=== PATIENT | female | born 1970 | race Caucasian/White ===

== ENCOUNTER 2016-08-18 09:16 | Observation (INO) ==
[2016-08-18] MEDS ORDERED: LR 1,000 ML IV ONE (09:26)
[2016-08-18] MEDS ORDERED: LR 1,000 ML ONE (09:28)
[2016-08-18 09:37] LABS: MANUAL DIFF NEEDED? NO
[2016-08-18 09:39] LABS: BASO% 0.3 % (0.0-0.8); EOS# 0.04 X1000 (0.0-0.7); EOS% 0.4 % (0.0-10.0); HEMATOCRIT 45.3 % (37.0-47.0); HEMOGLOBIN 16.2 g/dL (12.0-16.0); IMM GRAN# 0.02 X1000 (0.0-0.04); IMM GRAN% 0.2 % (0.0-0.5); LYMPH# 0.94 X1000 (1.2-3.4); LYMPH% 9.4 % (20.5-51.1); MCH 31.1 PG (27-31); MCHC 35.8 g/dL (33-37); MCV 86.9 FL (81-99); MONO# 1.03 X1000 (0.11-0.59); MONO% 10.2 % (1.7-9.3); MPV 10.5 FL (7.4-10.4); NEUT% 79.5 % (42.2-75.2); PLT 196 X1000 (130-400); RBC 5.21 XMIL (4.2-5.4)
[2016-08-18] MEDS: NORCO-7.5 PO PRN (09:58)
[2016-08-18] MEDS ORDERED: PHENERGAN IV SCH (10:00)
[2016-08-18] MEDS ORDERED: SODIUM CHLORIDE 0.9% INJ SCH (10:00)
[2016-08-18 10:16] LABS: ALBUMIN 4.5 g/dL (3.5-5.0); CALCIUM 9.5 mg/dL (8.8-10.2); POTASSIUM 3.9 mmol/L (3.5-5.1); TOTAL BILIRUBIN 0.78 mg/dL (0.20-1.00); TOTAL PROTEIN 7.6 g/dL (6.3-8.3)
[2016-08-18] MEDS: MORPHINE ONE ×2 (10:28→12:54)
[2016-08-18] MEDS: D5 1/2 NS + KCL 20 MEQ 1,000 ML IV SCH ×2 (10:30→20:01)
[2016-08-18] MEDS ORDERED: PHENERGAN IV PRN (10:31)
[2016-08-18] MEDS ORDERED: MORPHINE IV ONE (10:32)
[2016-08-18 10:33] LABS: ALBUMIN 4.5 g/dL (3.5-5.0); DIRECT BILIRUBIN 0.3 mg/dL (0.00-0.20); TOTAL BILIRUBIN 0.8 mg/dL (0.20-1.00); TOTAL PROTEIN 7.3 g/dL (6.3-8.3)
[2016-08-18] MEDS ORDERED: SODIUM CHLORIDE 0.9% INJ PRN (10:36)
--- NOTE | 2016-08-18 12:16 | Diag Imaging Result Doc PS360 ---
EXAM: ABDOMEN/PELVIS W/CONTRAST HISTORY: abdominal pain TECHNIQUE: CT of the abdomen with intravenous and oral contrast with dose reduction (clarity.) COMMENT: There is no evidence of acute disease in the visualized portion of the chest. The current study is compared with the previous noncontrast study of 08/12/2016. There has been cholecystectomy and there are are some edema just changes in the gallbladder fossa consistent with recent cholecystectomy. There is some periportal edema and slight intrahepatic biliary dilatation. The common bile duct is slightly distended at over 7 mm. There are no identifiable duct stones. The pancreatic duct is is not particularly distended. The pancreas is normal in appearance. The spleen and adrenal glands are not enlarged. The kidneys are without evidence of hydronephrosis or mass. There is no evidence of significant adenopathy or bowel obstruction. There is oral contrast in the ascending colon. There is gas in the subcutaneous tissues over the right upper quadrant anteriorly as well as deep to the rectus abdominis muscle and abdominal wall extending to the pelvis. This is presumably is secondary to the recent cholecystectomy. CT of the pelvis with intravenous and oral contrast: There is no evidence of appendicitis. The urinary bladder is slightly distended. There is a small amount of free fluid in the cul-de-sac which is of water density measuring less than 3 Hounsfield units. There are no masses and there is no evidence of significant adenopathy. There is a lucent area measuring 10 mm in diameter near the right cornu of the endometrial cavity. This was also present at the time of the previous study although is more conspicuous on this postcontrast exam. There are no acute bony abnormalities. IMPRESSION: Biliary dilatation of uncertain etiology. This may be secondary to the recent operative procedure. Other postsurgical changes as described above. Minimal free pelvic fluid. Hypodense abnormality in the uterus which is doubtless not related to the current illness but further evaluation with ultrasonography may be desirable as an outpatient. Electronically signed by Michael Arriola 08/18/2016 12:14 PM
[2016-08-18] MEDS ORDERED: MORPHINE IV PRN (12:48)
[2016-08-18] MEDS ORDERED: DEMEROL IM ONE (14:15)
[2016-08-18] MEDS ORDERED: PHENERGAN IM ONE (14:15)
[2016-08-18] MEDS ORDERED: NARCAN IV PRN (14:15)
[2016-08-18] MEDS ORDERED: MORPHINE PCA IV PRN (14:15)
[2016-08-18] MEDS ORDERED: LR 1,000 ML IV SCH (14:15)
[2016-08-18] MEDS ORDERED: MILK OF MAGNESIA PO ONE (15:06)
[2016-08-18] MEDS ORDERED: GLYCERIN ADULT PR ONE (15:07)
--- NOTE | 2016-08-18 15:21 | HISTORY AND PHYSICAL ---
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 At the time of surgery, her gallbladder was chronically inflamed but there was no acute infection. She did have stones in her gallbladder. We did do an intraoperative cholangiogram, which was normal and we felt the operation went safely. She was discharged home several hours after surgery in the evening on the day of surgery. This morning I heard from her through our drum operator that she was disoriented and fell trying to get out of bed, was very weak, had abdominal pain and had not been able to keep anything down because of persistent nausea and vomiting. I asked that she return to the emergency department. PAST MEDICAL HISTORY: As above. MEDICATIONS: None. ALLERGIES: None. 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 She lives locally. She has 1 child. She is . She does not smoke. REVIEW OF SYSTEMS: A 14-point review of systems was performed and except for this intractable nausea and vomiting and abdominal pain which she attributes to gas, it is essentially negative. PHYSICAL EXAMINATION: GENERAL: Ms. Larsen looks acutely ill, very weak, in a wheelchair, hard to hold her head up. She is very slim. She was cooperative. She had no evidence of jaundice. HEENT: No oral lesions. No cervical or supraclavicular lymphadenopathy. HEART: Had a regular rate. LUNGS: Clear to auscultation and percussion bilaterally. ABDOMEN: Remained flat. There was no evidence of acute abdomen. Her trocar sites were healing well. She had no costovertebral tenderness. RECTAL/VAGINAL: Exams were not performed. EXTREMITIES: I could palpate her femoral pulses. She had no peripheral edema. NEUROLOGICAL: No focal deficits. IMPRESSION: Intractable nausea and vomiting with dehydration and now disorientation 3 days status post laparoscopic cholecystectomy which we felt went well. She had a normal cholangiogram at the time of surgery. PLAN: We edgar blood. We will bolus her IV fluids and reassess today throughout her hospitalization. cc: Mayra Carey MD
[2016-08-18] MEDS: PROTONIX IV SCH (16:35)
[2016-08-18] MEDS: SODIUM CHLORIDE 0.9% INJ SCH (16:35)
--- NOTE | 2016-08-18 16:35 | PROGRESS NOTE ---
DATE: 08/18/2016 Ms. Larsen is now postop day 3 after undergoing a laparoscopic cholecystectomy for right upper quadrant abdominal pain. At the time of surgery I did do a cholangiogram which we felt was normal. There was flow of the dye into the duodenum. Prior to surgery she had a 3-day history of upper abdominal pain, prompting her to present to the emergency department. A CT scan was unremarkable but a followup ultrasound because of her persistent upper abdominal pain did document a gallstone and it was felt that this gallstone was symptomatic and I proceeded by taking her gallbladder out. Despite her cholecystectomy she states that this pain in the right upper quadrant has not improved. This morning she called me and was a little bit disoriented. She had not been able to eat and she was having abdominal pain. She was admitted directly and I have resuscitated her with IV fluids and gotten laboratory data. Her liver function tests are essentially normal. There was no elevation of her total bilirubin and there is no significant elevation of her AST and ALT. Her white blood cell count is 10, and her hematocrit was 46%. Electrolytes were essentially within normal limits. I got a CT scan of her abdomen and pelvis and there was a question of some dilatation of the intra and extrahepatic bile ducts, but again her liver function tests are within normal limits and this slight dilatation extended down into the ampulla. I felt the surgery had gone well and therefore after the CT scan I did not think there was an injury of any extrahepatic bile duct. There was not much free fluid so I think there would have been more fluid around the liver if she had a significant bile leak. She has no evidence of bowel obstruction because oral contrast got to her ascending colon. However she continues to have severe right upper quadrant pain requiring IV morphine. PLAN: I will start her on IV Protonix. I am going to ask Gastroenterology to see her in hopes that they may help with her symptoms. I feel that whatever was going on prior to her cholecystectomy despite removing her gallbladder has persisted, and maybe the gallstone was not the etiology of this pain. I am more comfortable that she does not have an injury from her laparoscopic cholecystectomy. We will continue IV hydration. I will repeat laboratories studies in the morning, and I am going to place her on a pain pump per Anesthesia. cc: Mayra Carey MD
[2016-08-18] MEDS ORDERED: MOTRIN PO SCH (17:00)
--- NOTE | 2016-08-18 17:48 | CONSULTATION ---
DATE OF CONSULTATION: 08/18/2016 REQUESTING PHYSICIAN: Dr. Carey. REASON FOR CONSULT: Abdominal pain. HISTORY: This is a 46-year-old white female with no history of major medical problem. Recently recently underwent laparoscopic cholecystectomy which was free of any event. However she was readmitted today with complaints of abdominal pain. On further questioning, she tells me that the pain has been persistent ever since it started about a week ago. It is constant pain which is located in the right side of the chest under her rib cage. The pain is worse when she stands up and when she takes a deep breath but the pain is not related to coughing or sneezing. It is not associated with any shortness of breath. Initially pain was associated with some nausea but no vomiting. She did not have any fever or chills with the pain. She had not had any dysuria, polyuria or hematuria. She had a urine exam which did show that she had suspicion of urinary tract infection. She was started on Bactrim which was stopped after the urine culture did not grow any bacteria suggestive of UTI. She did have gallbladder surgery and intraoperative cholangiogram did not show any pathology but the pathology report is pending for her gallbladder. The pain has been persistent despite taking pain medication so she was brought to the hospital admitted for further management, treatment. She denies any melena or bright red blood per rectum. She does not carry history of peptic ulcer disease. PAST MEDICAL HISTORY: Nothing significant. SURGERIES: Recent cholecystectomy. MEDICATIONS: She is currently on Lexapro and has taken some ibuprofen but she does not take any [id number] medication. ALLERGIES: No drug allergies. SOCIAL HISTORY: She drinks wine almost every night. Does not smoke. Does not drink, no illicit drugs. FAMILY HISTORY: Noncontributory. REVIEW OF SYSTEMS: As per HPI above. PHYSICAL EXAM: General: Very pleasant white female. She is in and out of somnolence. She has received some pain medication. She does respond to questions appropriately. Vital Signs: Temperature 98.6 degrees, pulse 79 per minute, breathing 18, blood pressure was 145/64. She weighs about 120 pounds. She is 5 feet 7 inches tall. HEENT: Head is atraumatic, normocephalic. Conjunctivae is normal. Sclerae anicteric. Nares are patent. No discharge noted. Mouth mucosa moist. Throat is normal. Neck: Supple. No lymphadenopathy, thyromegaly. Chest: Bilaterally symmetrical. It is moving with respirations. Breath sounds audible bilaterally. No rhonchi or crepitations could be heard. Heart: S1, S2 audible. No murmur could be appreciated. Abdomen: Is postsurgical. Some Steri-Strips and dressings are noted in the anterior abdominal wall. The anterior abdominal wall there was crepitus noted down to the right upper quadrant area and the area was slightly tender on palpation but no rebound tenderness or guarding noted. Bowel sounds are audible. Extremities: No pedal edema, cyanosis, clubbing was noted. [employer]READING [employer]: Grossly intact. No sensory or motor deficit. LABS: Reviewed which showed a WBC of 10.05, hemoglobin 16.2, hematocrit 45.3, MCV 86.9, platelets was 196,000. Sodium 132, potassium 3.9, chloride is 89, bicarb 29, BUN is 20, creatinine 1.1, AST 37, AST 43, total bilirubin was normal. CT scan of the abdomen reviewed. IMPRESSION: Abdominal pain, etiology at this point not known. There is a possibility of musculoskeletal pain. She has done some extraordinary exercises about a week or 10 days ago. However, other etiology needs to be ruled out. I will check her urine for urobilinogen levels to rule out acut intermittent porphyria and treat her with some laxatives to help her constipation. In the meantime I would treat her for musculoskeletal pain with ibuprofen and Robaxin and recheck her labs in the morning. I will check amylase, lipase from the blood drawn this afternoon. I have explained findings and plan the patient and her family member. They were present at bedside. They understood. All the pertinent questions answered. Case was also discussed with Dr. Carey. cc: MD Mayra Vera MD [facility]
--- NOTE | 2016-08-18 19:08 | PROGRESS NOTE ---
DATE: 08/18/2016 Priyanka is complaining of a headache this evening. She also had some vomiting that may be related to the ibuprofen that she got so I stopped her ibuprofen and started her on Toradol 15 mg IV because she weighs only 120 pounds. I discussed her treatment with her. We will check blood counts again in the morning. Her amylase and lipase were normal. I reviewed her EKG that Dr. Perez got. We will have Tristan Erazo, our cardiologists review that. She has no family history of cardiac disease. Dr. Helton thinks that this might be musculoskeletal but we need to be sure there is no intraabdominal component to her pain. I discussed her care with her father and daughter at the bedside also. cc: Mayra Carey MD
[2016-08-18] MEDS: TORADOL IV SCH (20:02)
[2016-08-18] MEDS: ROBAXIN PO SCH (20:02)
[2016-08-19] MEDS: TORADOL IV SCH ×4 (02:49→22:00)
[2016-08-19] MEDS ORDERED: D5 ONE (06:00)
[2016-08-19] MEDS ORDERED: 1/2 NS ONE (06:00)
[2016-08-19] MEDS: D5 1/2 NS + KCL 20 MEQ 1,000 ML IV SCH ×3 (06:06→19:16)
[2016-08-19 06:55] LABS: MANUAL DIFF NEEDED? NO
[2016-08-19 07:00] LABS: BASO% 0.1 % (0.0-0.8); EOS# 0.05 X1000 (0.0-0.7); EOS% 0.6 % (0.0-10.0); HEMOGLOBIN 14.6 g/dL (12.0-16.0); IMM GRAN# 0.02 X1000 (0.0-0.04); IMM GRAN% 0.2 % (0.0-0.5); LYMPH# 0.83 X1000 (1.2-3.4); LYMPH% 10.3 % (20.5-51.1); MCH 31.3 PG (27-31); MCHC 35.6 g/dL (33-37); MONO# 0.85 X1000 (0.11-0.59); MONO% 10.5 % (1.7-9.3); MPV 10.4 FL (7.4-10.4); NEUT% 78.3 % (42.2-75.2); PLT 167 X1000 (130-400); RBC 4.66 XMIL (4.2-5.4)
[2016-08-19 07:56] LABS: AGAP 13; ALBUMIN 3.9 g/dL (3.5-5.0); ALKALINE PHOSPHATASE 65 U/L (32-104); BUN 12 mg/dL (8-22); CALCIUM 8.4 mg/dL (8.8-10.2); CHLORIDE 89 mmol/L (98-107); COSMO 263; GOT 46 U/L (10-30); GPT 50 U/L (10-36); POTASSIUM 3.3 mmol/L (3.5-5.1); SODIUM 131 mmol/L (136-145); TCO2 29 mmol/L (25-35); TOTAL BILIRUBIN 0.75 mg/dL (0.20-1.00); TOTAL PROTEIN 6.4 g/dL (6.3-8.3)
[2016-08-19] MEDS ORDERED: IMITREX PO ONE ×2 (09:47→12:09)
[2016-08-19] MEDS: ROBAXIN PO SCH ×2 (10:19→22:01)
--- NOTE | 2016-08-19 11:00 | PROGRESS NOTE ---
DATE: 08/19/2016 SUBJECTIVE: Lisandra Larsen is now hospital day 2. She underwent a laparoscopic cholecystectomy on 08/15/2016 in the early evening because of right upper quadrant abdominal pain and gallstones. This operation was performed by myself. We did do an intraoperative cholangiogram which I felt was normal at the time of surgery. We felt we did the operation safely. She was having significant right upper quadrant pain for about 3 days prior to surgery, causing her to present to the emergency department where she underwent a CT scan which was essentially normal. An ultrasound is what showed the gallstones. In the postop period, on postop day 3, she called me through the concrete pump operator, stated that she was disoriented, weak, and having abdominal pain. I direct admitted her to the hospital for IV hydration and further evaluation. A repeat CT scan did not suggest any free fluid or any other problems with her surgery. Her liver function tests were essentially normal on admission but she was having significant right upper quadrant pain. This was not diffuse abdominal pain but in the right upper quadrant. I have asked Dr. Helton to see her and Dr. Perez also evaluated her which included an EKG which showed some flipped T-waves but nothing acute. Dr. Helton thought it might be musculoskeletal. She has been on clear liquids. She has required a morphine pain pump which she is taking 14 mg of since yesterday afternoon. She has taken some liquids but minimal p.o. intake. She is now complaining of a migraine headache which she has at home and she treats that with Imitrex which we will give her today. We will change her morphine to Demerol. Again, her labs are within normal limits today. OBJECTIVE: Her heart rate is 86-95, blood pressure 164/95, O2 saturation is 100%. She is afebrile on no IV antibiotics. Her white blood cell count is 8, hematocrit is 41%. Liver function tests, her AST went from 37-46. Her ALT went from 43-50. Her total bilirubin is normal. Her direct bilirubin is also normal. Yesterday, her amylase and lipase were normal. She states that her abdominal pain is some better today but she has taken some pain medicine. She is on IV Toradol also. Her main issue seems to be her migraine headache at this time. Her abdomen is slightly distended. She has had no bowel movements during her hospitalization. She has had a little bit of flatus. PLAN: To treat her migraine headache. Cut down her IV fluids. Advance her diet. Obtain a flat and upright abdominal film. Repeat liver function tests and a CBC tomorrow morning. I discussed her care with her father and daughter at the bedside. cc: Mayra Carey MD
--- NOTE | 2016-08-19 13:39 | Diag Imaging Result Doc PS360 ---
EXAM: FLAT/UPRIGHT ABD/1 VIEW CHEST HISTORY: ileus s/p lap skip TECHNIQUE: Flat and upright abdomen with chest COMMENT: There is some retained contrast in the right colon mixed with stool. There is gas throughout the colon. The stomach and small bowel are not distended. There are phleboliths in the pelvis. There are surgical clips in the gallbladder fossa. CHEST: There is been no significant change in the appearance the chest considering differences in inspiration since 04/30/2013. IMPRESSION: Constipation. Electronically signed by Michael Arriola 08/19/2016 1:37 PM
[2016-08-19] MEDS ORDERED: MILK OF MAGNESIA PO ONE (14:14)
[2016-08-19] MEDS: PROTONIX IV SCH (14:28)
[2016-08-19] MEDS: SODIUM CHLORIDE 0.9% INJ SCH (14:28)
--- NOTE | 2016-08-19 18:33 | PROGRESS NOTE ---
DATE: 08/19/2016 SUBJECTIVE: Patient is resting comfortably. In fact, she had her eyes closed and appears somnolent, easily arousable though. She responds to the question that she is doing better. She tells me that she has not had any abdominal pain per se but she feels as if her bladder is full and needs to urinate. She has not had any bowel movement since she received her milk of magnesia today but she had vomited most of it after she had taken it. She did have some flatus though. She denies any vomiting since last night. She is tolerating diet. She is not having any abdominal cramps. She had migraine headache this morning which has responded well to Imitrex. OBJECTIVE: Vital Signs: Temperature 98.6 degrees, pulse was 80 per minute, breathing 19, blood pressure 165/98. HEENT: Head is atraumatic, normocephalic. Conjunctivae is normal. Sclerae anicteric. Nares are patent. No discharge. Mouth: Buccal mucosa is moist. Abdomen: Is flat, postsurgical. There are some dressings on the anterior abdominal wall. Abdomen is soft, slightly tender. There is still subcutaneous crepitus on the right side. Bowel sounds are audible. LABS: WBC today was 8.06, hemoglobin 14.6, hematocrit 41.0, MCV is 88, platelets were 167,000. Sodium 131, potassium 3.3, chloride 89, bicarb is 29, BUN is 12, creatinine 0.8, glucose was 108, AST 46, ALT 50, total bilirubin 0.75, amylase, lipase done last night was normal. Urobilinogen level is still pending. IMPRESSION: Abdominal pain, improving, almost resolved. She does not have any nausea, vomiting or abdominal pain now however had some headache which has resolved after Imitrex. She does not want any further pain medicine. She has not required any pain medicine for her belly pain. She is currently on Toradol and Robaxin for the musculoskeletal pain most likely responsible for her right upper quadrant pain. I have advised her to stop IV fluid, encouraged her to ambulate and sit up in the bedside chair. Also advised her not to take any pain medicine if she does not need it and continue muscle relaxant, NSAID. Will follow. I will give her another dose of milk of magnesia today. Her blood pressure slightly elevated, stopping IV fluid will help that, sodium is low, potassium is low. She may need some replenishment. cc: MD Mayra Vera MD
[2016-08-19] MEDS: ZOFRAN IV PRN (20:02)
[2016-08-19] MEDS: TYLENOL PO PRN (22:07)
[2016-08-19] MEDS: DEMEROL IV PRN (23:37)
[2016-08-20] MEDS: TORADOL IV SCH ×4 (02:50→20:37)
[2016-08-20] MEDS: D5 1/2 NS + KCL 20 MEQ 1,000 ML IV SCH ×3 (03:09→12:50)
[2016-08-20] MEDS: ZOFRAN IV PRN (03:44)
[2016-08-20] MEDS: TYLENOL PO PRN (03:49)
[2016-08-20] MEDS: DEMEROL IV PRN (05:04)
--- NOTE | 2016-08-20 05:50 | EKG Report ---
Test Performed on : 08/18/2016 3:58:33 PM Test Reason : MD ORDERED Blood Pressure : / mmHG Vent. Rate : 090 BPM Atrial Rate : 090 BPM P-R Int : 104 ms QRS Dur : 078 ms QT Int : 342 ms P-R-T Axes : 021 055 -02 degrees QTc Int : 418 ms Sinus rhythm. with short MN Nonspecific T wave abnormality Abnormal ECG No previous ECGs available Confirmed by Tatyana LANDRUM, Rojas Serrano ([id number]) on 08/20/2016 10:55:25 AM
[2016-08-20 07:00] LABS: MANUAL DIFF NEEDED? NO
[2016-08-20 07:10] LABS: BASO% 0.1 % (0.0-0.8); EOS# 0.01 X1000 (0.0-0.7); EOS% 0.1 % (0.0-10.0); HEMATOCRIT 39.2 % (37.0-47.0); HEMOGLOBIN 14.3 g/dL (12.0-16.0); LYMPH# 0.51 X1000 (1.2-3.4); LYMPH% 6.1 % (20.5-51.1); MCH 31.4 PG (27-31); MCHC 36.5 g/dL (33-37); MONO# 0.83 X1000 (0.11-0.59); MONO% 9.9 % (1.7-9.3); MPV 10.1 FL (7.4-10.4); NEUT% 83.8 % (42.2-75.2); PLT 159 X1000 (130-400); RBC 4.56 XMIL (4.2-5.4)
[2016-08-20 07:16] LABS: ALBUMIN 3.8 g/dL (3.5-5.0); DIRECT BILIRUBIN 0.2 mg/dL (0.00-0.20); TOTAL BILIRUBIN 0.73 mg/dL (0.20-1.00); TOTAL PROTEIN 6.5 g/dL (6.3-8.3)
--- NOTE | 2016-08-20 08:31 | PROGRESS NOTE ---
DATE: 08/20/2016 SUBJECTIVE: Priyanka Larsen is now postop day 5 from a laparoscopic cholecystectomy with intraoperative cholangiogram. She was readmitted to the hospital on postop day 3, because of abdominal pain, nausea, and disorientation. We got a CT scan on her admission which we felt was essentially normal postop lap gallbladder. Her liver function tests were essentially normal. Her white blood cell count was normal and therefore, we have treated her conservatively with IV fluids and clear liquids. Her liver function tests have continued to be normal. Her vital signs have been stable, but she began complaining of a migraine headache yesterday which she has a history of, and we treated her with Imitrex x2. The nurses did call me about 11 p.m. last night saying that she was still having problems with a headache and we treated it with pain medicine. This morning, she still is suffering with a headache. She has to be helped to the bathroom and we feel that she has some weakness involving her left lower extremity. For these reasons, I have asked a neurologist to see her, Dr. Medina. OBJECTIVE: She is having a hard time focusing and cannot tell the nurse how many fingers she is holding up. She does follow my commands. Her heart rate is 74, blood pressure 140/71, O2 saturation 99%. She is voiding, but she has to be helped to the bathroom. She appears to be very weak. Her white blood cell count continues to be normal at 8.37, hematocrit is 39%. Her bilirubin is normal her AST and ALT have decreased, from 46 to 42. ALT from 50 to 49. She is on no antibiotics. Flat and upright abdominal film suggested constipation yesterday. No free air. It must be noted that she has had pain medicine. We switched from morphine to Demerol. She is also getting Toradol. PLAN: We will get a neurology consult. I will also get an internal medicine consult. She has had some nausea and vomiting with vomiting some green bile. She is on IV Protonix. I have asked GI medicine to evaluate her. She states that her abdomen is not hurting at this time, but she is not eating. She may have had some flatus, but no bowel movement. cc: Mayra Carey MD
[2016-08-20] MEDS ORDERED: IMITREX SUBQ ONE ×2 (08:39→11:34)
--- NOTE | 2016-08-20 12:35 | PROGRESS NOTE ---
DATE: 08/20/2016 SUBJECTIVE: Patient states she is still having a migraine. She is complaining of nausea associated with migraine. No reported vomiting today. She had some vomiting reported yesterday of green bile. She continues to receive Protonix. Neurology has been consulted for her migraines. OBJECTIVE: Vital Signs: Temperature 97.9 degrees, pulse 76, respirations 17, blood pressure 149/80. General: Patient is lying in bed with complaints of a migraine. HEENT: Normocephalic, atraumatic. Pupils equal, round, reactive to light. Sclerae nonicteric. Respiratory essentially clear bilaterally. Abdomen: Nontender, soft. DIAGNOSTIC RESULTS/LABORATORY: Hematology: White count 8.37, hemoglobin 14.3, hematocrit 39.2, MCV 86.0. Chemistry: Sodium 131, potassium 3.3, chloride 89, CO2 29, BUN 12, creatinine 0.8, total bilirubin 0.73, AST 42, ALT 49, alkaline phosphatase 66. ASSESSMENT: 1. Status post laparoscopic cholecystectomy 5 days ago. 2. Nausea, vomiting, abdominal pain. No reported abdominal pain today. No reported vomiting today but reports nausea associated with her migraine. 3. Migraines. Neurology has been consulted. Further plans made by him. We will continue to follow and further plans will be made as needed. Dictated by MARC Gonzalez for Ishan Helton MD cc: MARC Rg MD Lynn R. Buckner, MD
--- NOTE | 2016-08-20 14:20 | Diag Imaging Result Doc PS360 ---
MRI BRAIN W W/O CONTRAST - 08/20/2016 INDICATION: headache, blurry vision, confusion, left side weak TECHNIQUE: COMPARISON: None FINDINGS: There are large bilateral masses in the cerebrum. One is centered at the right parietal lobe, the other at the left occipital lobe. These are heterogeneously hypointense in signal, with significant surrounding vasogenic edema. There is some ill-defined internal contrast enhancement. These are probably partially cystic. On the right side this measures about 4.1 x 3.1 cm. On the left side, this measures about 4.1 x 2.8 cm. No free hemorrhage. IMPRESSION: Large bilateral masses in the cerebral hemispheres. Given their bilateral nature, metastatic disease must be considered. Correlate clinically. Electronically signed by Oscar Bell 08/20/2016 2:18 PM
--- NOTE | 2016-08-20 14:22 | Diag Imaging Result Doc PS360 ---
MRA BRAIN W/O CONTRAST - 08/20/2016 INDICATION: headache, blurry vision, confusion, left side weak TECHNIQUE: Noncontrast [id number] technique was used. COMPARISON: None FINDINGS: The major intracranial arteries are all patent with no evidence of aneurysm or significant stenosis. There is some arterial appearing signal within the heterogeneous bilateral cerebral masses. This may indicate neovascularity. IMPRESSION: Large bilateral cerebral masses apparently exhibiting neovascularity. [place] arteries are unremarkable. Electronically signed by Oscar Bell 08/20/2016 2:19 PM
[2016-08-20] MEDS ORDERED: DECADRON IV ONE (14:50)
[2016-08-20] MEDS ORDERED: PROTONIX IV SCH (15:00)
[2016-08-20] MEDS ORDERED: SODIUM CHLORIDE 0.9% INJ SCH (15:00)
--- NOTE | 2016-08-20 15:58 | Diag Imaging Result Doc PS360 ---
HEAD W/WO CONTRAST - 08/20/2016 INDICATION: Brain mass vs. Hemorrhage TECHNIQUE: A CT dose reduction protocol was used. COMPARISON: Brain MRI from earlier FINDINGS: The large bilateral cerebral masses are lobular, heterogeneously hyperdense. These have the appearance of acute intralobar hemorrhages. There is some surrounding vasogenic edema. There is no abnormal contrast enhancement. No evidence of dural sinus thrombosis. IMPRESSION: Large bilateral intraparenchymal cerebral hemisphere hematomas. Findings were immediately called to Dr. Carey. Electronically signed by Oscar Bell 08/20/2016 3:56 PM
--- NOTE | 2016-08-20 16:04 | Diag Imaging Result Doc PS360 ---
CT THORAX W/CONTRAST - 08/20/2016 INDICATION: Brain METs TECHNIQUE: A CT dose reduction protocol was used. COMPARISON: None FINDINGS: There are bilateral breast implants. The lungs are clear. Heart size is normal. No pneumothorax or pleural effusion. IMPRESSION: Negative exam. Electronically signed by Oscar Bell 08/20/2016 4:02 PM
[2016-08-20] MEDS ORDERED: NUBAIN IV PRN (17:45)
--- NOTE | 2016-08-20 18:21 | CONSULTATION ---
DATE OF CONSULTATION: 08/20/2016 REASON FOR CONSULTATION: I was asked to see this pleasant 46-year-old white female, on Saturday morning for a headache, dizziness, vertigo, left-sided weakness. Patient apparently admitted on 08/18/2016 after laparoscopic cholecystectomy. Apparently, she is dehydrated. Dr. Carey requested for these neurological abnormalities. The patient was seen before by Dr. Sheth. REVIEW OF SYSTEMS: Headache on the left side. Now both sides, double vision, blurring of vision. Weakness in the left leg. Slightly nauseous. She has history of migraine headaches. Past medical history problem. Migraine headaches. 2 depression. PAST SURGICAL HISTORY: Lap cholecystectomy. Bilateral breast implants. MEDICATIONS: Celexa, Zofran, Percocet. SOCIAL HISTORY: . One kid. No smoking. No alcohol. FAMILY HISTORY: Father is alive. Mom at the age of 80. REVIEW OF SYSTEMS: HEENT: Headache vision problems. Weakness on the left side. Nauseous. Neck: No neck rigidity. Cardiopulmonary: No chest pain, shortness of breath, PND, orthopnea. GI: No nausea, vomiting, abdominal pain. : No history of hesitancy, frequency. Extremities: No swelling of feet. No joint pain. Neurologic: Weakness on the left side. Double vision. PHYSICAL EXAMINATION: Vital Signs: Low-grade fever. Vitals are stable. HEENT : Pupils are equal, reactive to light. Extraocular muscles intact. Neck: No neck rigidity. Chest: Clear. Heart: Sounds are regular. Abdomen: Belly is soft, nontender. Good bowel sounds. No masses palpable. No peripheral edema or cyanosis. Neurologic: Alert, oriented. In a lot of pain. Weakness in the left leg 3/5. Unable to assess full exam because of bedridden. INVESTIGATIONS: CBC: White cell count 8.3, hematocrit 39, platelets 159,000. SMA7 is normal. LFTs are slightly high. ASSESSMENT AND PLAN: A 46-year-old white female, postoperative laparoscopic cholecystectomy, presented with dizziness, vertigo, altered mental status, diplopia with weakness in the left leg. Rule out intracranial pathology. Head computed tomography and magnetic resonance imaging of the brain. Family history of aneurysm of the brain. Magnetic resonance imaging were discussed with large bilateral intraparenchymal masses with hemorrhages, right parietal, left occipital. Differential diagnosis metastatic versus primary. Apparently previous workup: 1. Mammography 04/11/2016 is negative. 2. Chest x-ray is negative. Computed tomography is negative. Results discussed with Dr. Carey. Plan of care is intravenous steroids to reduce the swelling. 3. Intravenous Protonix. 4. Nubain for pain control. 5. We will transfer to [facility] under Neurosurgical consult. Once again, thanks for the kind referral. cc: MD Mayra Tripp MD MTDD
--- NOTE | 2016-08-20 20:17 | PROGRESS NOTE ---
DATE: 08/20/2016 Ms. Lisandra Larsen this morning continued to have headaches and had to be helped to the bathroom with noticeable weakness of her left lower extremity and she had trouble focusing with her eyes. I asked neurology to see her, Dr. Medina, and also our manager of financial planning, Dr. Melony Vu. She has undergone multiple x-rays including a brain MRA, brain MRI and a head CT which all suggest that she has 2 distinct hemorrhagic masses that are . One is in the left occipital measuring greater than 4 cm and one is on the right parasagittal parietal area measuring 3.8 cm. The etiology of these hemorrhages or hemorrhagic masses is unknown. She has had a CT scan of her chest, abdomen and pelvis which suggests no evidence of any cancer. She has had a recent mammogram in May of this year, which was normal. She has no history of head trauma. Her blood pressure has been 140-165 systolic over 71-98 diastolic. I frankly discussed the x-ray findings with her father and the patient and we will look to discuss her case with neurosurgery with possible transfer. cc: Mayra Carey MD
[2016-08-20] MEDS: NORCO-7.5 PO PRN (20:36)
--- NOTE | 2016-08-20 20:37 | CONSULTATION ---
DATE OF CONSULTATION: 08/20/2016 REASON FOR CONSULTATION: The patient is seen in consultation at the request of Dr. Dayron Carey for evaluation of headache, altered mental status and left-sided weakness. HISTORY OF PRESENT ILLNESS: The patient is a 46-year-old right-handed female 5 days status post laparoscopic cholecystectomy who was readmitted on 08/18/2016 with abdominal pain, nausea and disorientation. She reports that on early Saturday she began to gradually have the onset of various symptoms. She says she felt generally weak. Apparently her daughter who is 16 years old said that she was confused and for instance could not find her daughter's bedroom. She handed the patient her socks but the patient was noted to be unable to put on her socks herself. She also was not clearly able to understand commands that were given to her. A friend that is in the room also says that the daughter mentioned that at one point, she was on the floor seemingly making a phone call but was not really doing so. The patient seems to say that everything started gradually and all around the same time. She has a longstanding history of migraine headaches but says that the current headache has been more persistent. And while the intensity and pain description is similar to prior headahces, the confusion, visual changes and weakness are new. No fevers. She has been noted to require assistance getting up to the bathroom and dragging her left leg. Since her surgery 5 days ago, she has not felt well per the family and she has not been eating or drinking. The patient reports a longstanding history of migraines her whole life. She describes a terrible pressure pain across her forehead and temples and when she applies tension to her head that seems to help. It is associated with nausea, photophobia and phonophobia as well as sensitivity to smell. They last a few hours and are relieved with [id number]-[id number] Imitrex. She has been having these her whole life and she has been having 1-2 per week. PAST MEDICAL HISTORY: Status post laparoscopic cholecystectomy 5 days ago, migraines longstanding, depression. SOCIAL HISTORY: She is not . She has 1 daughter who is 16 years old and that is who she lives with. 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 She exercises regularly and is in overall good health. She drinks maybe a glass of wine a week. No illicit drugs. No tobacco. FAMILY HISTORY: Her mother had migraines. Her mother in May of this year possibly from heart attack. No strokes or autoimmune disease or seizures in the family. MEDICATIONS: At home include Lexapro which she has been taking for depression for about a year. CURRENT MEDICATIONS: Notable for [place] 7.5 one p.o. q.6 hours p.r.n. for pain, Toradol 15 mg IV q.6 hours scheduled, Demerol 50 mg IV q.6 hours p.r.n. pain, Zofran p.r.n. and sumatriptan 6 mg subQ. She received 1 of these just recently. ALLERGIES: No known drug allergies. REVIEW OF SYSTEMS: Balance of 12 review of systems was conducted and otherwise negative except that mentioned in the HPI. PHYSICAL EXAM: General: The patient is supine in bed. The lights are off. She is lying with a cold pack on her head. Neck: Supple. No meningismus. No carotid bruits. Cardiovascular: Regular rate and rhythm. No murmurs appreciated. Lungs: Clear to auscultation anteriorly. Abdomen: Soft, nontender, and nondistended. Notable for the surgical dressings. Extremity: No cyanosis, clubbing, or edema. Skin: No rash, lesions or breakdown. Neurological: Mental status. She is awake although lying in bed with her eyes closed. Appears to be in pain. Her attention and concentration are limited. She is oriented to self, to place and to the year but not to the month. She is able to tell me the president. She is able to name things that are placed in her hand but is not able to finds them visually when I lift them up to her. She is obviously confused and relates a history that is probably not entirely accurate and this is noted when discussing this with her family. Cranial nerves. Her pupils are equal, round, reactive to light, 4 mm to, 3 mm OU, conjugate gaze. Ocular movements are intact; unable to see and follow my finger though. No nystagmus. Visual tyler are not directly tested because the patient is unable to focus on or find pretty much anything that is held up near her face. Facial sensation is intact. Face is symmetrical with equal activation. Intact strength. No ptosis. Hearing is grossly intact. Palate elevates symmetrically. Uvula is midline. Tongue protrudes midline. Full shoulder shrug bilaterally. SCM strength is full. Motor exam. Normal bulk, her tone is reduced on the left. No abnormal movements. Her pronator drift is limited on the left. She does not even pronate fully upon testing. It does drift also. She has a mild to moderate left hemiparesis. She tends to want to do everything using her right side even when asked to use her left side at first; inattentive to left side. Her reflexes are symmetric, 2+ throughout. Plantar response is flexor bilaterally. No Cooley's, no clonus. Sensory is intact to light touch and temperature, vibration was initially reduced on the left leg distally but subsequently it seems as though she can sense it. Did not test her gait but she has been noted to drag her left leg when ambulating with the nurses to the bathroom and the nurses relay this to me. Coordination. [id number] is intact using the right leg. Unable to perform using the left leg. Her [id number]-au-ozli she is unable to find my finger to perform this but easily finds her nose. Her rapid alternating movements are intact. PERTINENT DIAGNOSTICS: Her labs are reviewed in the chart. Normal white count , hemoglobin and hematocrit as well as platelets. Sodium of 131, potassium of 3.3, chloride 89, CO2 29, BUN 12, creatinine 0.8, was 1.1 yesterday, glucose 108, calcium 8.4, AST and ALT are mildly elevated at 46 and 50 respectively, alkaline phosphatase normal, amylase and lipase are normal. ASSESSMENT AND PLAN: 46-year-old female 5 days status post laparoscopic cholecystectomy now with gradual onset of confusion, headache and left-sided weakness and inattentiveness. Her abdominal pain that she presented with for admission along with confusion is now resolved. Her exam is concerning. Will order MRI/MRA/MRV of the brain to evaluate for stroke (ischemic or hemorrhagic) as well as cerebral venous sinus thrombosis. Will evaluate the latter due to the profound headache and recent surgery with reports of possible dehydration and her visual changes. Will order these urgently and go from there. Thank you for this consultation. Will follow. cc: MD Mayra Stephenson MD [facility]ITAL[facility]it
[2016-08-20] MEDS ORDERED: PEPCID PO SCH (21:00)
[2016-08-20 21:33] VITALS: BP 153/82
[2016-08-20] MEDS ORDERED: DECADRON IV SCH (23:00)
== END 2016-08-20 21:52 | disposition short-term general hospital (02) ==
PROVIDERS: ADMIT Surgery; ATTEND Surgery